=== PATIENT | female | born 1990 | race American Indian/Alaskan Native ===

== ENCOUNTER → 2020-10-02 | Outpatient (CLI) | payer OTHER | END | disposition home or self-care (01) | LOC: NST 15:06 | PROVIDERS: ATTEND Obstetrics & Gynecology | DX: Z34.83 Encounter for supervision of other normal pregnancy, third trimester (principal) ==

== ENCOUNTER 2020-10-17 12:15 | Inpatient (IN) | payer OTHER ==
[~2020-10-17] VITALS: Ht 160 cm; Wt 76.2 kg
[2020-11-12] MEDS ORDERED: PRENATAL VITAM1 EAC4 (08:34)
== END 2020-11-14 13:38 | disposition home or self-care (01) | DRG 807 ==
LOC: LDR 11-12 07:05 → OB/GYN 11-12 12:15
PROVIDERS: ADMIT Obstetrics & Gynecology; ATTEND Obstetrics & Gynecology
PROC: 10E0XZZ Delivery of Products of Conception, External Approach (ICD-10-PCS; principal; 2020-11-12)
PROC: 0HQ9XZZ Repair Perineum Skin, External Approach (ICD-10-PCS; 2020-11-12)
PROC: 10907ZC Drainage of Amniotic Fluid, Therapeutic from Products of Conception, Via Natural or Artificial Opening (ICD-10-PCS; 2020-11-12)
PROC: 3E033VJ Introduction of Other Hormone into Peripheral Vein, Percutaneous Approach (ICD-10-PCS; 2020-11-12)
PROC: 4A1HXFZ Monitoring of Products of Conception, Cardiac Rhythm, External Approach (ICD-10-PCS; 2020-11-12)
DX: O70.0 First degree perineal laceration during delivery (principal); Z37.0 Single live birth; Z3A.40 40 weeks gestation of pregnancy; Z20.822 Contact with and (suspected) exposure to COVID-19

== ENCOUNTER → 2020-11-03 | Outpatient (CLI) | payer OTHER ==
[~2020-11-03] MED LIST: PRENATAL VITAM1 EAC4
== END | disposition home or self-care (01) ==
LOC: NST 01:15
PROVIDERS: ATTEND Obstetrics & Gynecology
DX: Z34.83 Encounter for supervision of other normal pregnancy, third trimester (principal)